=== PATIENT | female | born 1945 | race Two or more races ===

== ENCOUNTER 2018-08-26 07:00 | Day surgery (SDC) | payer OTHER ==
[~2018-08-26] VITALS: Ht 160 cm; Wt 69.9 kg
== END 2018-08-27 09:00 | disposition home or self-care (01) ==
LOC: CIR.AMB 07:00 → OB/GYN 10:49 → O/R 10:49 → CIR.AMB 08-27 09:00 → O/R 08-27 12:05 → OB/GYN 08-27 12:05
DX: D25.1 Intramural leiomyoma of uterus (principal); N84.0 Polyp of corpus uteri; N73.6 Female pelvic peritoneal adhesions (postinfective)

== ENCOUNTER 2019-09-21 08:02 | Outpatient (CLI) | payer OTHER | END 2019-09-21 08:10 | disposition home or self-care (01) | LOC: TOM 08:02 | DX: K56.600 Partial intestinal obstruction, unspecified as to cause (principal); K63.5 Polyp of colon ==

== ENCOUNTER 2021-12-11 07:15 | Day surgery (SDC) | payer OTHER | END 2021-12-11 12:55 | disposition home or self-care (01) | LOC: AMB-ENDOS 07:15 | PROVIDERS: ATTEND Colon & Rectal Surgery | DX: D12.4 Benign neoplasm of descending colon (principal); D12.5 Benign neoplasm of sigmoid colon; K64.2 Third degree hemorrhoids; Z86.010 Personal history of colon polyps; Z20.822 Contact with and (suspected) exposure to COVID-19 ==